=== PATIENT | female | born 1950 | race Caucasian/White ===

== ENCOUNTER → 2018-09-09 | Outpatient (CLI) | payer MEDICARE, MEDICAID ==
[~2018-09-09] MED LIST: REGADENOSON 0.4 MG/5 ML IV ONE
== END | disposition home or self-care (01) ==
LOC: NM 07:17
PROVIDERS: ATTEND Internal Medicine Cardiovascular Disease
DX: I10 Essential (primary) hypertension (principal); E78.00 Pure hypercholesterolemia, unspecified
CPT/HCPCS: 78452; 93017; A9500; J2785

== ENCOUNTER 2019-12-22 12:18 | Emergency (ER) | payer MEDICAID, MEDICARE ==
[~2019-12-22] VITALS: Ht 162.6 cm; Wt 68.0 kg
[2019-12-22] MEDS ORDERED: KETOROLAC 15MG/ML VIAL IM ONE (14:00)
[2019-12-22] MEDS ORDERED: ACETAMINOPHEN 325MG TABLET PO ONE (14:00)
[2019-12-22 14:03] LABS: BASOPHILS % 1.4 % (0.0-2.0); EOSINOPHILS % 3.4 % (0.0-5.0); HEMATOCRIT. 44.2 % (36.0-48.0); LYMPHOCYTES % 33.2 % (20.0-50.0); MEAN CORPUSCULAR HEMOGLOBIN 30.8 pg (28.0-32.0); MEAN CORPUSCULAR VOLUME 90.9 fL (81.0-99.0); MEAN PLATELET VOLUME 10.3 fl (7.4-10.4); MONOCYTES % 6.2 % (2.0-8.0); NEUTROPHILS % 55.8 % (40.0-76.0); PLATELET 135 x1000/uL (130-400); RED BLOOD CELL COUNT 4.86 mill/uL (4.2-5.4); RED CELL DISTRIBUTION WIDTH 13.5 % (11.6-14.6)
[2019-12-22 14:10] LABS: CHLORIDE 109 mEq/L (98-107)
[2019-12-22 15:23] VITALS: BP 124/58
== END 2019-12-22 15:39 | disposition home or self-care (01) ==
LOC: ER 12:18
DX: R07.89 Other chest pain (principal); J06.9 Acute upper respiratory infection, unspecified; R73.9 Hyperglycemia, unspecified; Z88.0 Allergy status to penicillin
CPT/HCPCS: 36415; 71045; 80053; 83880; 84484; 85025; 87804; 93005; 96372; 99285; J1885